=== PATIENT | male | born 2000 | race Caucasian/White ===

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

== ENCOUNTER 2021-11-11 00:31 | Emergency (ER) | payer MEDICAID, OTHER ==
[2021-11-11] MEDS ORDERED: cloNIDine HCL 0.2 MG TAB PO STA (00:47)
--- NOTE | 2021-11-11 00:48 | ED ---
General Adult HPI - General Stated complaint: high blood pressure Time Seen by Provider: 11/11/21 00:34 - History of Present Illness Initial comments: 's patient is a 21-year-old man who presents with complaint that he noted his blood pressure was high. The patient states that he took his blood pressure today at medics class and it was elevated. The patient states he is not having symptoms related to that and he was tries to find that it was high was. The patient is not having chest pain, dyspnea or cough. No headache or neurologic symptoms. No abdominal pain. The patient states that his blood pressure tends to run 140 over the mid 80s. He does note that he had probably slept around 2 hours last night and he did have energy beverage today. Onset/Timin -: hour(s) Severity scale (1-10): 0 Consistency: constant Improves with: none Worsens with: none Associated Symptoms: denies other symptoms Treatments Prior to Arrival: none - Related Data Previous Rx's Medication Instructions Recorded Docusate [Colace] 100 mg PO BID #20 capsule 05/06/17 HYDROcodone/APAP 7.5-325MG [Hodges 1 each PO Q4H PRN #30 tab 05/06/17 7.5] Allergies Allergy/AdvReac Type Severity Reaction Status Date / Time No Known Allergies Allergy Verified 05/06/17 08:54 Review of Systems ROS Statement: Those systems with pertinent positive or pertinent negative responses have been documented in the HPI. ROS Other: All systems not noted in ROS Statement are negative. Constitutional: Denies: fever, chills, weakness Eyes: Denies: eye pain, vision change Respiratory: Denies: cough, dyspnea Cardiovascular: Denies: chest pain, palpitations Gastrointestinal: Denies: abdominal pain, nausea, vomiting Musculoskeletal: Denies: back pain Skin: Denies: rash Neurological: Denies: headache, weakness, numbness, paresthesias, confusion Psychiatric: Denies: anxiety Past Medical History Past Medical History: Pneumonia History of Any Multi-Drug Resistant Organisms: MRSA Date of last positivie culture/infection: 08/16/2014 MDRO Source:: Face Past Surgical History: No Surgical Hx Reported Past Anesthesia/Blood Transfusion Reactions: No Reported Reaction Past Psychological History: No Psychological Hx Reported Past Alcohol Use History: None Reported Past Drug Use History: None Reported - Past Family History Mother Family Medical History: No Reported History General Exam General appearance: alert, in no apparent distress Head exam: Present: atraumatic, normocephalic Eye exam: Present: normal appearance. Absent: scleral icterus, conjunctival injection Neck exam: Present: normal inspection Respiratory exam: Present: normal lung sounds bilaterally. Absent: respiratory distress, wheezes, rales, rhonchi Cardiovascular Exam: Present: regular rate, normal rhythm, normal heart sounds. Absent: systolic murmur, diastolic murmur, rubs, gallop GI/Abdominal exam: Present: soft. Absent: distended, tenderness, guarding, rebound, mass, pulsatile mass Extremities exam: Present: normal inspection, normal capillary refill. Absent: pedal edema, calf tenderness Back exam: Present: normal inspection Neurological exam: Present: alert Skin exam: Present: warm, dry, intact, normal color. Absent: rash Course Vital Signs 11/11/21 11/11/21 00:32 01:30 Pulse Rate 88 88 Respiratory 16 Rate Blood Pressure 182/121 185/100 EKG Findings - EKG Results: EKG: interpreted by GAGE PUGH, sinus rhythm (With frequent PVCs, rate 91 bpm), normal axis, normal QRS, normal ST/T Medical Decision Making - Lab Data Result diagrams: 11/11/21 02:45 11/11/21 02:45 Lab Results 11/11/21 11/11/21 11/11/21 Range/Units 02:45 02:45 02:45 WBC 9.7 (3.8-10.6) k/uL RBC 4.95 (4.30-5.90) m/uL Hgb 15.2 (13.0-17.5) gm/dL Hct 45.1 (39.0-53.0) % MCV 91.0 (80.0-100.0) fL MCH 30.7 (25.0-35.0) pg MCHC 33.8 (31.0-37.0) g/dL RDW 12.4 (11.5-15.5) % Plt Count 396 (150-450) k/uL MPV 6.7 Neutrophils % 59 % Lymphocytes % 21 % Monocytes % 12 % Eosinophils % 3 % Basophils % 1 % Neutrophils # 5.8 (1.3-7.7) k/uL Lymphocytes # 2.1 (1.0-4.8) k/uL Monocytes # 1.2 H (0-1.0) k/uL Eosinophils # 0.3 (0-0.7) k/uL Basophils # 0.1 (0-0.2) k/uL Sodium 136 L (137-145) mmol/L Potassium 3.7 (3.5-5.1) mmol/L Chloride 98 (98-107) mmol/L Carbon Dioxide 26 (22-30) mmol/L Anion Gap 12 mmol/L BUN 14 (9-20) mg/dL Creatinine 0.85 (0.66-1.25) mg/dL Est GFR (CKD-EPI)AfAm >90 (>60 ml/min/1.73 sqM) Est GFR (CKD-EPI)NonAf >90 (>60 ml/min/1.73 sqM) Glucose 120 H (74-99) mg/dL Calcium 9.1 (8.4-10.2) mg/dL Magnesium 2.0 (1.6-2.3) mg/dL Total Bilirubin 0.6 (0.2-1.3) mg/dL AST 26 (17-59) U/L ALT 55 H (4-49) U/L Alkaline Phosphatase 45 (38-126) U/L Troponin I <0.012 (0.000-0.034) ng/mL Total Protein 7.0 (6.3-8.2) g/dL Albumin 4.4 (3.5-5.0) g/dL Disposition Clinical Impression: Hypertension Disposition: HOME SELF-CARE Condition: Good Instructions (If sedation given, give patient instructions): Hypertension (ED) Is patient prescribed a controlled substance at d/c from ED?: No Referrals: Corwin Moon MD [Primary Care Provider] - 1-2 days
[2021-11-11 00:57] VITALS: PULSE 88
[2021-11-11 03:01] LABS: Basophils # (A) 0.1 k/uL (0-0.2); Basophils % (A) 1 %; Eosinophils # (A) 0.3 k/uL (0-0.7); Eosinophils % (A) 3 %; HCT 45.1 % (39.0-53.0); HGB 15.2 gm/dL (13.0-17.5); Lymphocytes # (A) 2.1 k/uL (1.0-4.8); Lymphocytes % (A) 21 %; MCH 30.7 pg (25.0-35.0); MCHC 33.8 g/dL (31.0-37.0); Mean Platelet Volume 6.7; Monocytes # (A) 1.2 k/uL (0-1.0); Monocytes % (A) 12 %; Neutrophils # (A) 5.8 k/uL (1.3-7.7); Neutrophils % (A) 59 %; Platelet Count 396 k/uL (150-450); RBC 4.95 m/uL (4.30-5.90); RDW 12.4 % (11.5-15.5); WBC 9.7 k/uL (3.8-10.6)
[2021-11-11 03:14] LABS: ALT 55 U/L (4-49); AST 26 U/L (17-59); African American GFR (CKD) >90 (>60 ml/min/1.73 sqM); Albumin 4.4 g/dL (3.5-5.0); Alkaline Phosphatase 45 U/L (38-126); Anion Gap 12 mmol/L; Blood Urea Nitrogen 14 mg/dL (9-20); Calcium 9.1 mg/dL (8.4-10.2); Carbon Dioxide 26 mmol/L (22-30); Chloride 98 mmol/L (98-107); Glucose 120 mg/dL (74-99); Non-African American GFR(CKD) >90 (>60 ml/min/1.73 sqM); Potassium 3.7 mmol/L (3.5-5.1); Sodium 136 mmol/L (137-145); Total Bilirubin 0.6 mg/dL (0.2-1.3)
[2021-11-11 03:15] VITALS: BP 185/100; RESP 16
== END 2021-11-11 07:34 | disposition home or self-care (01) ==
LOC: EC 00:31
DX: I10 Essential (primary) hypertension (principal)
CPT/HCPCS: 36415; 80053; 83735; 84484; 85025; 93005; 99282